=== PATIENT | female | born 1975 | race Caucasian/White ===

== ENCOUNTER 2022-09-01 16:19 | Emergency (ER) | payer OTHER ==
[2022-09-01 17:07] VITALS: BP 131/80; PULSE 78; RESP 20; TEMP 98.2; BMI 30.4
== END 2022-09-01 20:00 | disposition left against medical advice (07) ==
LOC: JER 16:19
DX: R06.89 Other abnormalities of breathing (principal)
CPT/HCPCS: 93005; 93010; 99283-25